=== PATIENT | male | born 1975 | race Caucasian/White ===

== ENCOUNTER 2016-07-30 20:34 | Emergency (ER) | payer SELFPAY ==
[2016-07-30 20:36] VITALS: O2SAT 98
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
[2016-07-30 21:04] LABS: BASOPHIL % 0.4 % (0.0-0.4); Eosinophil % 2.3 % (0.00-5.0); Granulocytes % 67.4 % (36.0-66.0); Lymphocytes % 22.5 % (24.0-44.0); Mean Cell Volume 93.4 fl (78-100); Mean Corpuscular Hemoglobin 31.6 pg (26-32); Mean Platelet Volume 9.6 fl (6-9.5); Monocytes % 7.4 % (0.0-12.0); Platelet Count 286 K/mm3 (150-450); Red Blood Count 4.52 M/mm3 (4.1-5.6); Red Cell Distribution Width 13.8 % (11.5-14.0); White Blood Count 14.4 K/mm3 (4.0-10.5)
[2016-07-30 21:08] LABS: Bacteria RARE /HPF (NEGATIVE); COMPLETE URINE MICROSCOPIC? YES; Collection Type CLEAN CATCH; Epithelial Cells FEW /HPF (FEW); Ph 5.5 (5-6)
[2016-07-30 21:27] LABS: ALBUMIN 3.9 g/dL (3.4-5.0); ALKALINE PHOSPHATASE 75 U/L (46-116); ANION GAP 13.8 MEQ/L (5-15); BILIRUBIN,TOTAL 0.3 mg/dL (0.2-1.0); BLOOD UREA NITROGEN 11 mg/dL (9-20); CHLORIDE 104 mEq/L (98-107); Carbon Dioxide 26.5 mEq/L (21-32); Glucose 119 MG/DL (70-110); Potassium 3.7 mEq/L (3.5-5.1); SGOT/AST 21 U/L (15-37); SGPT/ALT 16 U/L (12-78); SODIUM 141 mEq/L (136-145); Total Protein 7.3 gm/dL (6.4-8.2)
[2016-07-30 21:31] LABS: ACETAMINOPHEN < 2.0 ug/ml (10-30)
[2016-07-31 00:33] VITALS: BP 130/78; PULSE 72
== END 2016-07-31 02:08 | disposition home or self-care (01) ==
LOC: ED 20:34
DX: R45.4 Irritability and anger (principal)
CPT/HCPCS: 36415; 80053; 80307; 80320; 81000; 83986; 85025; 90791; 99283; G0481; Q3014